=== PATIENT | female | born 1995 | race African-American/Black ===

== ENCOUNTER 2016-08-16 21:33 | Emergency (ER) | payer OTHER ==
[~2016-08-16] VITALS: Ht 170.2 cm; Wt 96.0 kg
[~2016-08-16 21:33] MED LIST: CLINDAMYCIN HC300 MG PO; DOXYCYCLINE HY100 MG PO; MOTRIN600 MG PO; MOTRIN800 MG PO; NORCO 5/3251 TABLET PO; ULTRAM50 MG PO; UNKNOWN ANTIBIOTIC PO; ZOFRAN4 MG PO
[2016-08-17] MEDS ORDERED: TRAMADOL HCL50 MG PO (01:22)
[2016-08-17] MEDS ORDERED: MOTRIN600 MG PO (01:22)
[2016-08-17 01:43] VITALS: BP 130/88
== END 2016-08-17 01:44 | disposition home or self-care (01) ==
LOC: EME 21:33 → EXP 21:33
DX: R07.89 Other chest pain (principal)
CPT/HCPCS: 71020; 93005; 99281; 99283

== ENCOUNTER 2017-05-15 13:23 | Emergency (ER) | payer OTHER ==
[~2017-05-15] VITALS: Ht 170.2 cm; Wt 99.7 kg
[~2017-05-15 13:23] MED LIST changes: +TRAMADOL HCL50 MG PO
[2017-05-15 13:55] LABS: HEMATOCRIT 39.2 % (36.0-46.0); MCH 30.7 PG (29.0-34.0); MCHC 33.2 G/DL (30.0-36.0); MCV 92.5 FL (83-99); PLATELET COUNT 225 K/uL (156-360); RBC DIS.WIDTH-CV 12.7 % (11.8-14.6); RBC DIS.WIDTH-SD 42.8 % (39-53); RED BLOOD COUNT 4.24 M/uL (3.80-5.20); WHITE BLOOD COUNT 5.6 K/uL (4.1-10.2)
[2017-05-15 14:05] LABS: ALBUMIN 4.2 g/dL (3.2-4.8); CHLORIDE 106 mEq/L (99-109); POTASSIUM 4.5 mEq/L (3.7-5.4); SODIUM 141 mEq/L (136-147)
[2017-05-15 14:07] LABS: GLUCOSE 101 mg/dL (70-99); TOTAL PROTEIN 7.5 g/dL (6.4-8.3)
[2017-05-15 14:09] LABS: TOTAL BILIRUBIN 0.3 mg/dL (0.0-1.0)
[2017-05-15 14:11] LABS: ALKALINE PHOSPHATASE 66 IU/L (3-129); CREATININE 0.8 mg/dL (0.6-1.3); GFR ESTIMATE (CALCULATED) > 59 mL/min/
[2017-05-15 14:12] LABS: UREA NITROGEN (BUN) 11 mg/dL (9-23)
[2017-05-15 14:13] LABS: AST (GOT) 18 IU/L (2-34)
[2017-05-15 14:14] LABS: ALT (GPT) 22 IU/L (3-49)
[2017-05-15 14:19] LABS: QUANTITATIVE HCG < 4.0 MIU/ML
[2017-05-15 14:57] LABS: APPEARANCE SL.HAZY ((CLEAR)); BILIRUBIN NEGATIVE; BLOOD NEGATIVE; COLOR YELLOW ((YELLOW)); GLUCOSE (STRIP) NEGATIVE; KETONES NEGATIVE; LEUKOCYTES NEGATIVE; NITRITE NEGATIVE; PROTEIN (STRIP) 30; SPECIFIC GRAVITY 1.031 (1.000-1.030); UROBILINOGEN 0.2 MG/DL (0.2-1.0)
[2017-05-15] MEDS ORDERED: ZOFRAN ODT4 MG PO (15:07)
[2017-05-15] MEDS ORDERED: BENTYL10 MG PO (15:07)
[2017-05-15 15:09] LABS: BACTERIA NONE SEEN /HPF; CALCIUM OXALATE CRYSTALS 1+ /HPF; EPITHELIAL CELLS 2+ /HPF; MUCUS 1+ /LPF; RED BLOOD CELLS 0-5 /HPF (0-5); UCUL ADDED? NO; WHITE BLOOD CELLS 0-5 /HPF (0-5)
[2017-05-15 15:25] VITALS: BP 122/76
== END 2017-05-15 15:26 | disposition home or self-care (01) ==
LOC: EME 13:23
DX: R10.84 Generalized abdominal pain (principal); R11.2 Nausea with vomiting, unspecified; R19.7 Diarrhea, unspecified
CPT/HCPCS: 80053; 81003; 84702; 85027; 99281; 99285